=== PATIENT | female | born 1955 | race Caucasian/White ===

== ENCOUNTER 2018-02-13 23:11 | Observation (INO) ==
[2018-02-13] MEDS ORDERED: Sodium Chloride 0.9% 1,000 ML PRIMARY IV ONE (23:32)
[2018-02-13] MEDS ORDERED: MORPHINE SULFATE 4 MG/1 ML IVP ONE (23:32)
[2018-02-13] MEDS ORDERED: ONDANSETRON 4 MG/2 ML VIAL IVP ONE (23:32)
--- NOTE | 2018-02-13 23:34 | PDOC ---
Abdomen/Flank HPI - General Chief Complaint: Abdomen Pain Stated Complaint: LOWER ABDOMINAL PAIN Date Seen by Provider: 02/13/18 Time Seen by Provider: 23:34 Source: POSITIVE: Patient Exam Limitations: POSITIVE: No limitations Nurse's Notes Reviewed & Considered: Yes - History of Present Illness Initial Comments: This is a well-developed, well-nourished, 62-year-old female, complaining of right lower quadrant abdominal pain. Patient with sudden onset of right lower quadrant abdominal pain that began as generalized discomfort in her abdomen at approximately 2000 hrs. At 2200 hrs. she developed sharp pain in her right lowe r quadrant and came in for evaluation tonight. She denies any headache, she has a mild sore throat, denies chest pain or shortness of breath, no cough, she does have nausea but no vomiting or diarrhea, no hematuria or dysuria, no myalgias or arthralgias, no rashes. Patient returned to the [facility] on Tuesday from a cruise to the [facility] in the [facility] where she was involved in scuba diving. No other individuals with her group have experienced abdominal pain. Body Location Affected: REPORTS: Abdomen Timing: REPORTS: Abrupt Duration: 4-6 hours Severity: Moderate Quality: REPORTS: Cramping, "Pain", Sharpness Abdominal Pain Onset Location: REPORTS: Generalized abdomen Abdominal Pain Radiation: REPORTS: RLQ Context: REPORTS: Rest Modifying Factors: improves with: Nothing Associated Symptoms: REPORTS: Nausea Similar Symptoms Previously: No Recent Care Received: REPORTS: Denies Any Prior Injuries Related to Current Complaint?: No - Patient Home Medications Home Medications: Home Medications Candesartan/Hydrochlorothiazid [ATACAND HCT] 1 each PO DAILY 07/27/11 Anastrozole [Arimidex] 1 mg PO DAILY 02/13/18 - Patient Allergies Allergies/Adverse Reactions: Allergies Allergy/AdvReac Type Severity Reaction Status Date / Time iodine [Iodine] Allergy Mild HIVES Verified 02/13/18 23:28 Past Medical History - heen HEENT History: Denies History Cardiovascular History: Hypertension Respiratory History: Denies History Gastrointestinal History: Denies History Genitourinary History: Denies History Endocrine History: Denies History Musculoskeletal History: Denies History Prosthesis or Implant: No Neurological History: Denies History Blood Disorders: Denies History Psychiatric History: Denies History Cancer History: Denies History History of MDRO: No Alcohol Use: None In the Past 12 Months, Have Used or Abuse Any Substance: None Previous Surgical History: Yes Anesthesia Reactions: No Significant Family History: No pertinent family hx ROS Constitution: REPORTS: Denies Symptoms Cardiovascular: REPORTS: Denies Cardiac Symptoms Respiratory: REPORTS: Denies Resp Symptoms Neurological: REPORTS: Denies Neuro Symptoms Gastrointestinal: REPORTS: Abdominal Pain, Nausea Endocrine: REPORTS: Denies Symptoms Musculoskeletal: REPORTS: Denies MS Symptoms Genitourinary: REPORTS: Denies Symptoms Eyes: REPORTS: Denies Symptoms ENT: REPORTS: Denies Symptoms Skin: REPORTS: Denies Skin Symptoms Lympathic: REPORTS: Denies Lympathic Symptoms Immunologic: POSITIVE: Denies Symptoms Psychiatric: POSITIVE: Denies Psych Symptoms Abdominal/Flank Pain PE - General Appearance General Appearance: POSITIVE: Alert, Cooperative, No Acute Distress, No Evidence of Trauma - HEENT HEENT: POSITIVE: Head Inspection Nml, Eyes Inspection Nml, Ears Inspection Nml, Nose Inspection Nml, Oral/Dental Inspect. Nml, Pharynx Inspect. Nml, PERRL, EOMI - Neck Neck: POSITIVE: Normal Inspection - Respiratory Respiratory: POSITIVE: No Respiratory Distress, Breath Sounds Normal, Chest Non- Tender - Cardiovascular Cardiovascular: POSITIVE: Regular Rate and Rhythm, Heart Sounds Normal, Strong Pulses Peripheral Pulses: Radial (L): 4+ - Chest Chest: POSITIVE: Non Tender - Abdomen Abdomen: Soft: (All Quadrants), Normal Bowel Sounds: (All Quadrants), Denies Tenderness: (LLQ), (LUQ), (RUQ), No Splenomegaly: (All Quadrants), No Hepatomegaly: (All Quadrants), No Guarding: (All Quadrants), No Rebound: (All Q uadrants), No Palpable Pulse: (All Quadrants), No Palpabale Mass: (All Quadrants), No Distention: (All Quadrants), No Rigidity: (All Quadrants), Tenderness Noted: (RLQ) - Back Back: POSITIVE: Normal Inspection - Skin Skin: POSITIVE: Intact, Normal For Race, Warm, Dry, No Rash - Extremities Extremity: Non-Tender: (All Extremities), Normal ROM: (All Extremities), Normal Inspection: (All Extremities), Pelvis Stable: (All Extremities) - Neurological Neurological: POSITIVE: Affect Apporpriate, Oriented X3, Motor Normal, Sensation Normal - Psychological Psychiatric: POSITIVE: Affect Appropriate, Mood Appropriate Abdomen Progress - Results Reviewed by me Xrays/CTs/US Reviewed by me: Yes Discussed with Radiologist: Yes Lab Results Reviewed by Me: Yes CBC and BMP: 02/13/18 23:50 02/13/18 23:50 - Patient's Progress Pain Medication Addressed: POSITIVE: Yes Re-examine Time: 02:00 Status: POSITIVE: Improved MDM / ED Course: Patient was evaluated, an IV started, blood drawn and sent to the lab for studies, CT and ultrasound of her abdomen were obtained. Findings: CBC shows an anemia with hemoglobin 11.3 and hematocrit of 34.7, normal white count, 91.9% neutrophils. CRP is 0.9. Magnesium is 1.8. CMP shows potassium of 3.7, glucose 139, alkaline phosphatase of 129. Ultrasound shows no acute abnormalities, specifically no ovarian torsions. CT scan of her abdomen shows appendicoliths present with dilated appendix. Assessment: Appendicitis. Plan: Patient receives Mefoxin IV, Toradol IV, normal saline, and Zofran. She is being taken to the OR by Dr. Ca for indicated procedures. - Consult Consult (If Yes, Name of Consulting MD & Time Called): Yes (Dr. Ca 0115hrs) Consulting MD will see pt:: POSITIVE: In ED Counseled: POSITIVE: Patient, Family, RE: Lab Results, RE: Radiology Results, RE: DX, RE: Need for F/U Patient Care Time - Estimated PCT Patient Care Time (In Minutes): 45 Vital Signs - VS Reviewed Vital Signs Reviewed: Yes Discharge Clinical Impression: Appendicitis Discharge Disposition: Transferred to OR Condition: Stable Date Decision to Admit to Inpatient: 02/14/18 Time Decision to Admit to Inpatient: 01:17
[2018-02-13 23:58] LABS: BASOPHILS # (AUTO) 0.01 10*3/UL; BASOPHILS % (AUTO) 0.1 % (0-1); EOSINOPHILS # (AUTO) 0.01 10*3/UL; EOSINOPHILS % (AUTO) 0.1 % (0-8); Hematocrit [HCT] 34.7 % (37.0-47.0); Hemoglobin [HGB] 11.3 g/dL (12.0-16.0); LYMPHOCYTES # (AUTO) 0.39 10*3/uL; MEAN CORPUSCULAR HEMOGLOBIN 30.1 PG (27-31); MEAN CORPUSCULAR HGB CONC 32.6 g/dL (33-37); MEAN CORPUSCULAR VOLUME 92.5 FL (81-99); MEAN PLATELET VOLUME 10.7 FL (7.4-12.2); MONOCYTES # (AUTO) 0.23 10*3/UL (0.3-0.8); MONOCYTES % (AUTO) 2.9 % (5-15); NEUTROPHILS # (AUTO) 7.36 10*3/UL; NEUTROPHILS % (AUTO) 91.9 % (50-80); RED BLOOD COUNT 3.75 10^6/uL (4.20-5.40)
[2018-02-14 00:06] LABS: BLOOD UREA NITROGEN 17 mg/dL (7-22); BUN/CREATININE RATIO 18.88 (6-20); SERUM ALBUMIN 4.5 g/dL (3.5-4.8)
[2018-02-14 00:10] LABS: PLATELET MORPHOLOGY COMMENT NORMAL MORPHOLOGY (NORM); RBC MORPHOLOGY COMMENT NORMAL MORPHOLOGY (NORM); WBC MORPHOLOGY COMMENT NORMAL MORPHOLOGY (NORM)
[2018-02-14] MEDS ORDERED: KETOROLAC 15 MG/1 ML VIAL IVP ONE (00:15)
--- NOTE | 2018-02-14 01:04 | DI ---
EXAM: CT Abdomen and Pelvis Without Intravenous Contrast CLINICAL HISTORY: ITS.REASON RLQ pain Physician Notes: Tech Comments: TECHNIQUE: Axial computed tomography images of the abdomen and pelvis without intravenous contrast. COMPARISON: No relevant prior studies available. FINDINGS: Lung bases: Unremarkable. No mass. No consolidation. ABDOMEN: Liver: Unremarkable. Gallbladder and bile ducts: No abnormal ductal dilation or stones. Pancreas: Unremarkable. No ductal dilation. Spleen: Unremarkable. No splenomegaly. Adrenals: Unremarkable. No mass. Kidneys and ureters: Unremarkable. No obstructing stones. No hydronephrosis. Stomach and bowel: Unremarkable. No obstruction. No mucosal thickening. PELVIS: Appendix: Calcified appendicoliths throughout the appendix which measures up to 8 mm. No periappendiceal inflammation. Bladder: Unremarkable. No stones. Reproductive: Unremarkable as visualized. ABDOMEN and PELVIS: Intraperitoneal space: Unremarkable. No free air. No significant fluid collection. Bones/joints: No acute fracture. No dislocation. Soft tissues: Unremarkable. Vasculature: Unremarkable. No abdominal aortic aneurysm. Lymph nodes: Unremarkable. No enlarged lymph nodes. IMPRESSION: Calcified appendicoliths throughout the appendix which is mildly dilated. No periappendiceal inflammation. Equivocal for acute appendicitis.
[2018-02-14] MEDS ORDERED: CefOXitin Inj 2 GM in Sodium Chloride 0.9% 100 ML IV ONE (01:16)
--- NOTE | 2018-02-14 01:52 | DI ---
EXAM: US Pelvis Complete, Transabdominal CLINICAL HISTORY: rlq pain TECHNIQUE: Real-time transabdominal pelvic ultrasound (complete) with image documentation. COMPARISON: No relevant prior studies available. FINDINGS: Uterus/cervix: The uterus measures 5.5 x 1.7 x 2.7 cm. The endometrial stripe measures only 2 mm. No myometrial mass. Right ovary: The right ovary measures 1.9 x 1.1 x 2.1 cm. Normal internal blood flow. Left ovary: The left ovary measures 2.4 x 1.8 x 1.7 cm. Normal internal blood flow. Free fluid: No free fluid. Bladder: Unremarkable as visualized. Wall is normal thickness for degree of distention. IMPRESSION: Negative sonographic evaluation of the pelvis.
--- NOTE | 2018-02-14 01:53 | DI ---
EXAM: US Pelvis Complete, Transabdominal US Pelvis, Transvaginal CLINICAL HISTORY: RLQ PAIN TECHNIQUE: Real-time transabdominal and transvaginal pelvic ultrasound (complete) with image documentation. Transvaginal imaging was used for better evaluation of the endometrium and adnexa. COMPARISON: CT examination performed earlier the same day. FINDINGS: Uterus/cervix: The uterus measures 5.5 x 1.7 x 2.7 cm. The endometrial stripe measures only 2 mm. No myometrial mass. Right ovary: The right ovary measures 1.9 x 1.1 x 2.1 cm. Normal internal blood flow. Left ovary: The left ovary measures 2.4 x 1.8 x 1.7 cm. Normal internal blood flow. Free fluid: No free fluid. Bladder: Unremarkable as visualized. Wall is normal thickness for degree of distention. IMPRESSION: Negative sonographic evaluation of the pelvis.
--- NOTE | 2018-02-14 02:02 | PDOC ---
HPI - History of Present Illness Date of Service: 02/14/18 Time of Service: 01:58 Chief Complaint: Right lower quadrant pain History of Present Illness: This is a 62-year-old healthy female who developed abdominal pain this evening. Pain progressively became more severe. She rated pain as 7-8 out of 10. She feels better currently but received pain medication. She denies any fever or chills. She denies diarrhea or constipation. She denies hematochezia hematemesis or melena. Last special. Was over 8 years ago. Patient has CT scan showed multiple fecaliths seen within the appendix. The appendix is slightly dilated. There is no pelvic fluid or paracystic inflammation seen. Patient had a transvaginal ultrasound that did not show any torsion of the ovary. No ovarian cysts. Patient has had left-sided breast cancer status post lumpectomy radiation currently is on maintenance therapy. She has a history of hypertension. Past Medical History Medical History: Hypertension Surgical History: Lumpectomy and radiation therapy for breast cancer of the left breast Tobacco Use: Never Smoker In the Past 12 Months, Have Used or Abuse Any of the Following Substance: None Medication / Allergies Home Medications: Home Medications Medication Instructions Recorded Confirmed Type Candesartan/Hydrochlorothiazid 1 each PO DAILY 07/27/11 02/13/18 History [ATACAND HCT] Anastrozole [Arimidex] 1 mg PO DAILY 02/13/18 02/13/18 History Allergies/Adverse Reactions: Allergies Allergy/AdvReac Type Severity Reaction Status Date / Time iodine [Iodine] Allergy Mild HIVES Verified 02/13/18 23:28 Review of Systems - Review of Systems All Systems: Reviewed & No Additional Complaints Except as Stated Exam - Vitals Vital Signs: Vital Signs Temperature 98.3 F Temperature Source Temporal Artery Scan Pulse Rate [Pulse Oximeter] 77 Respiratory Rate 18 Blood Pressure [Left Arm] 135/68 Pulse Ox 98 Oxygen Delivery Method Room Air Height 5 ft 5 in Weight 150 lb - General General Appearance: No Acute Distress, Cooperative - Head Head Exam: Normocephalic - Eye Eye Exam: POSITIVE: PERRL, EOMI - Neck Neck Exam: Full ROM, No Tenderness - Respiratory Respiratory Exam: POSITIVE: Clear to Auscultation - Bilaterally, Breathing Non Labored - Cardiovascular Cardiovascular Exam: POSITIVE: RRR, No Murmur - GI/Abdominal GI/Abdominal Exam: POSITIVE: Normal Bowel Sounds, Non Distended, Soft, Positive for RUQ Pain, No Hepatomegaly, No Splenomegaly - Rectal Rectal Exam: POSITIVE: Deferred - External Exam: POSITIVE: Deferred - Extremities Extremities Exam: POSITIVE: Full ROM, Normal Capillary Refill, No Clubbing Present, No Edema Present - Neurological Neurological Exam: POSITIVE: Oriented x 3, Reflexes Normal, CN II-XII Intact - Psychiatric Psychiatric Exam: POSITIVE: Normal Affect, Normal Mood - Integumentary Integumentary Exam: POSITIVE: Normal Color, Warm Results - Labs CBC and BMP: 02/13/18 23:50 02/13/18 23:50 Assessment and Plan - Patient Problems (1) Acute appendicitis Current Visit: Yes Status: Acute Code(s): K35.80 - Unspecified acute appendicitis - Assessment / Plan Additional Assessment/Plan Details: At this point the CT scan does show a fecalith some mildly dilated appendix all been consistent with acute appendicitis. I talked to the patient about surgical options was gluteal laparoscopic versus open. We will do a laparoscopic appendectomy. Risks benefits surgery were explained she understands the son for consent.
[2018-02-14] MEDS ORDERED: MIDAZOLAM HCL 2 MG/2 ML VIAL ONE (02:08)
[2018-02-14] MEDS ORDERED: fentaNYL Inj 100 MCG/2 ML VIAL ONE (02:08)
[2018-02-14] MEDS ORDERED: KETAMINE 100 MG/1 ML - 5 ML ONE (02:09)
[2018-02-14] MEDS ORDERED: PROPOFOL 10 MG/1 ML (200 MG/20 ML) VIAL IV ONE (02:09)
[2018-02-14] MEDS ORDERED: BUPivacaine Inj 0.25% PF - 10ml vial ONE (02:10)
[2018-02-14] MEDS ORDERED: ROCURONIUM 10 MG/1 ML - 5 ML VIAL IVP ONE (02:14)
[2018-02-14] MEDS ORDERED: DEXAMETHASONE PF 10 MG/1 ML VIAL ONE (02:36)
[2018-02-14] MEDS ORDERED: ONDANSETRON 4 MG/2 ML VIAL ONE (02:46)
[2018-02-14] MEDS ORDERED: SUGAMMADEX SODIUM 200 MG/2 ML VIAL IV ONE (03:07)
--- NOTE | 2018-02-14 03:18 | GEN.OPNOTE ---
Operative Note Surgery Date: 02/14/18 Preoperative Diagnosis: Acute appendicitis Postoperative Diagnosis: Acute appendicitis with localized peritonitis Procedure: Laparoscopic appendectomy Surgeon: Isac Ca MD Anesthesia Provider: Saumya Klein CRNA Anesthesia Type: General Estimated Blood Loss (mL): 2 Fluids: Lactated Ringer's 1500 mL please see anesthesia notes in EMR. 2 g of Mefoxin Pathology: Appendix sent Indications: Patient is acute appendicitis with fecalith seen within the appendix Findings: Patient had acute appendicitis. He notes still fluid patient also had a necrotic base of the appendix Complications: None Operative Summary: Patient brought in the operating room. Placed supine position. Patient is given general tracheal anesthesia. Was prepped, and draped in sterile fashion. Timeout performed per protocols. Small incision made below the umbilicus. Veress needle inserted to obtain pneumoperitoneum. After adequate pneumoperitoneum, a 10 mm trocar was placed using the Visiport. Patient had a quick exploration showed acute appendicitis. I then put a 5 mm trocar in the suprapubic area through stab incision. A 10 mm was placed in the left lower quadrant. Protruding appropriate instrumentation was obtained. I then used the gyrus to clamp divided and ligated the mesial appendix. Blunt dissection was taken down take some adhesions from the appendix away from the edge of the cecum. Patient had a necrotic base to the appendix. Therefore, that he said he used the laparoscopic stapler to divide the appendix. I did have to change out the 10 mm to 12 mm trocar. I then placed a 45 mm stapler across the end of the cecum and fired it best dividing the appendix. Appendix is placed in an Endobag and removed through the 12 mm trocar. I then irrigated until clear. We reinspected there is good anastomosis no evidence of leak. No other pathology was identified. Patient had a sky's egg blue gallbladder. Deinsufflated the pneumoperitoneum and removed all trochars. Closed the 10 and 12 mm fascial defects with simple interrupted 0 Vicryl suture. Skin reapproximated using 4-0 Vicryl simple sutures. Steri-Strips applied sterile dressings applied. Patient tolerated procedure well the were no computations. Counts were correct. Patient Problems - Patient Problem List (1) Acute appendicitis Current Visit: Yes Status: Acute Code(s): K35.80 - Unspecified acute appendicitis Category: Medical Procedure Codes - Surgical Procedures Primary Surgical Procedure: 71499 : Appendectomy, Lap
[2018-02-14] MEDS ORDERED: KETOROLAC 15 MG/1 ML VIAL IVP PRN ×2 (03:19→03:42)
[2018-02-14] MEDS ORDERED: MORPHINE SULFATE 2 MG/1 ML IVP PRN ×2 (03:19→03:42)
[2018-02-14] MEDS ORDERED: HYDROcodone-APAP 7.5 MG-325 MG TABLET PO PRN ×2 (03:19→03:42)
[2018-02-14] MEDS ORDERED: Ondansetron ODT Tab 4 MG TAB PO PRN ×2 (03:19→03:42)
[2018-02-14] MEDS ORDERED: Acetaminophen 1000mg Inj 1,000 MG/100 ML VIAL IV ONE (03:28)
[2018-02-14] MEDS ORDERED: D5-1/2NS 1,000 ML PRIMARY IV SCH ×2 (03:30→03:42)
[2018-02-14] MEDS ORDERED: Lactated Ringers 1,000 ML PRIMARY IV ONE (03:31)
--- NOTE | 2018-02-14 03:36 | CRNA.PROGR ---
Anesthesia Time - Procedure/Recovery Time Start Date: 02/14/18 End Date: 02/14/18 Anesthesia : Time In: 02:18 Anesthesia : Time Out: 03:23 Anesthesia : Total Time: 65 - Total Anesthesia Time Total Anesthesia Time (minutes): 65 - Other Weight: 68.039 kg Height: 5 ft 5 in Body Mass Index (BMI): 25.0 Physical Status: P1 Anesthesia Type: General Anesthesia : ET
--- NOTE | 2018-02-14 03:36 | CRNA.PROGR ---
Anesthesia Recovery Phase I - Post Anesthesia Evaluation Patient's Condition on Arrival in Phase I: Stable Patient's Condition on Arrival in Phase II: Stable Pain Level: 0
--- NOTE | 2018-02-14 03:36 | CRNA.PROGR ---
Post Anesthesia Phase II - Post Anesthesia Phase II Patient Stable and Discharged To: Med/Surg Care Assumed By Surgeon: Onofre Ca MD Temperature: 98 F Pulse Rate: 84 Respiratory Rate: 18 Blood Pressure: 121/66 Pulse Ox: 98 Total Hair Score at Discharge: 9 Post Anesthesia Discharge Criteria Met: Yes
--- NOTE | 2018-02-14 08:30 | DCSUMMARY ---
Discharge Summary Admit Date: 02/13/18 Discharge Date: 02/14/18 Admitting Diagnosis: acute appendicitis Discharge Diagnosis: appendicitis localized peritonitis Primary Surgery and Date: Appendectomy on 02/13/2018 Hospital Course: Patient underwent an appendectomy on 02/13/2018. She is found to have a acutely inflamed appendix with the base of the appendix been necrotic. She underwent an appendectomy without any problems. This is done laparoscopically. First postoperative morning she was pain-free. Abdomen was soft nontender. She'll be able to be discharged to home. Follow-up in one week's time. Activities as tolerated. Patient does not want to use narcotics therefore she'll be on ibuprofen and Tylenol for postoperative pain Exam - Vitals Vital Signs: Vital Signs Temperature 98.4 F Temperature Source Temporal Artery Scan Pulse Rate [Pulse Oximeter] 72 Pulse Rate 84 Respiratory Rate 17 Blood Pressure [Right Arm] 125/72 Blood Pressure [Left Arm] 135/68 Blood Pressure 115/66 Pulse Ox 92 Oxygen Flow Rate 2 Oxygen Delivery Method Nasal Cannula Height 5 ft 5 in Weight 150 lb - GI/Abdominal GI/Abdominal Exam: POSITIVE: Non Tender, Non Distended, Soft Patient Problems - Patient Problem List (1) Acute appendicitis Current Visit: Yes Status: Acute Code(s): K35.80 - Unspecified acute appendicitis Category: Medical
[2018-02-14] MEDS ORDERED: ANASTROZOLE 1 MG PO SCH ×2 (09:00)
[2018-02-14] MEDS ORDERED: CANDESARTAN PO SCH ×2 (09:00)
[2018-02-14] MEDS ORDERED: HYDROCHLOROTHIAZID PO SCH ×2 (09:00)
== END 2018-02-14 10:31 | disposition home or self-care (01) ==
LOC: ER 23:11 → MED/SURG 02-14 02:07 → OR 02-14 02:07
PROVIDERS: ADMIT Surgery; ATTEND Surgery